=== PATIENT | female | born 1995 | race Caucasian/White ===

== ENCOUNTER 2017-02-08 01:43 | Emergency (ER) | payer MEDICAID, OTHER ==
[~2017-02-08] VITALS: Ht 165.1 cm; Wt 60.0 kg
[~2017-02-08 01:43] MED LIST: [UNRECOGNIZED DRUG - OTHER]
[2017-02-08] MEDS ORDERED: ONDANSETRON HCL 4MG/2ML VIAL IV STA (03:28)
[2017-02-08] MEDS ORDERED: SODIUM CHLORIDE 0.9% 1,000 ML IV ONE (03:28)
[2017-02-08 05:55] VITALS: BP 102/70
== END 2017-02-08 05:55 | disposition home or self-care (01) ==
LOC: ER 01:44
DX: T40.7X1A Poisoning by cannabis (derivatives), accidental (unintentional), initial encounter (principal); R42 Dizziness and giddiness; R11.2 Nausea with vomiting, unspecified; F17.210 Nicotine dependence, cigarettes, uncomplicated; Y92.018 Other place in single-family (private) house as the place of occurrence of the external cause
CPT/HCPCS: 96361; 96374; 99284; J2405; J7030; Z7610

== ENCOUNTER 2017-05-09 02:45 | Emergency (ER) | payer SELFPAY ==
[~2017-05-09] VITALS: Ht 162.6 cm; Wt 62.0 kg
[2017-05-09 04:51] VITALS: BP 121/72
== END 2017-05-09 04:52 | disposition home or self-care (01) ==
LOC: ER 02:45
DX: Z53.21 Procedure and treatment not carried out due to patient leaving prior to being seen by health care provider (principal)
CPT/HCPCS: 99281